=== PATIENT | male | born 2000 | race Caucasian/White ===

== ENCOUNTER 2022-12-18 12:04 | Outpatient (CLI) | payer OTHER ==
--- NOTE | 2022-12-18 14:04 | XRAY Report ---
PROCEDURE: Arthrogram Needle Placement INDICATIONS: RIGHT SHOULDER DISLOCATION CONTRAST: Not applicable FLUOROSCOPY TIME: Less than 1 second. TECHNIQUE: The indications, alternatives, benefits, risks, and complications of the procedure were explained to the patient. Written informed consent was obtained and placed in the chart. The shoulder was examin ed fluoroscopically and a site for needle placement chosen for entry into the glenohumeral joint from an anterior approach. The skin was prepped and draped in the usual fashion, and 1% lidocaine infilt rated from skin down to joint capsule. A spinal needle was inserted into the glenohumeral joint, and a small amount of iodinated contrast media injected to confirm intra-articular placement of the need le tip. This was followed by approximately 12 mL dilute solution of a gadolinium containing MR contr ast agent. The needle was removed and a dressing was applied. The patient was given postprocedural instructions and sent to the MR suite for MR imaging. FINDINGS: A single fluoroscopic spot image demonstrates intra-articular location of injected iodinated contrast . IMPRESSION: Successful fluoroscopically guided administration of dilute Gadolinium solution into the shoulder lanny clarke for MR arthrogram. Reviewed by: Francisco J Najera on 12/18/2022 2:02 PM PDT Approved by: Francisco J Najera on 12/18/2022 2:02 PM PDT Station ID: [id number]
--- NOTE | 2022-12-18 16:31 | MRI Report ---
PROCEDURE: ARTHROGRAM SHOULDER - RT INDICATIONS: RIGHT SHOULDER DISLOCATION TECHNIQUE: After the administration of 12 mL of dilute intra-articular Gadolinium contrast, oblique coronal T1 a nd T2 spin echo with fat saturation, oblique sagittal T1 spin echo with and without fat saturation, o blique sagittal T2 fast spin echo with fat saturation, axial T1 spin echo with fat saturation through the shoulder. COMPARISON: None. FINDINGS: Image quality: Excellent. Rotator cuff: Low-grade bursal surface partial-thickness tear involving distal supraspinatus at its i nsertion on humeral head is seen extending to musculotendinous junction. Distal infraspinatus tendino sis is seen. Low-grade partial-thickness tear involving superior fibers of distal subscapularis is al so noted. No full-thickness rotator cuff tendon rupture. No rotator cuff muscle atrophy on sagittal i mages. Bones and bursae: Chronic appearing Hill-Sachs deformity involving posterior lateral humeral head is seen. No corresponding Bankart fracture. No marrow edema is seen. No acromioclavicular joint degenera tion. The acromion demonstrates conventional anatomy, without an os acromiale. Capsule and soft tissues: Focal area of subtle signal abnormality and contour irregularity involving superior anterior labrum at 12 to 1:00 position is seen suggestive of subtle superior anterior labral tear. There is also signal abnormality and abnormal contrast extension involving anterior inferior l abrum at 5 to 6:00 position consistent with Bankart lesion. The long head of the biceps tendon demons trates normal location and morphology. The rotator interval appears normal, without fibrosis. The c oracohumeral ligament is of normal thickness. No intra-articular bodies. IMPRESSION: 1. Subacute or chronic appearing Hill-Sachs deformity involving humeral head. No Bankart fracture. No marrow edema. No gross loose bodies. 2. Low-grade bursal surface partial-thickness tear involving distal supraspinatus. Distal infraspinat us tendinosis. Low-grade partial-thickness tear involving superior fibers of distal subscapularis. No full-thickness rotator cuff tendon rupture. 3. Suggestion of very subtle superior anterior labral tear at 12 to 1:00 position. Suggestion of ante rior inferior labral tear at 5 to 6:00 position consistent with Bankart lesion. Reviewed by: Asael Franks MD on 12/18/2022 4:30 PM PDT Approved by: Asael Franks MD on 12/18/2022 4:30 PM PDT Station ID: [id number]
== END 2022-12-18 12:05 | disposition home or self-care (01) ==
LOC: DI 12:04
DX: M21.821 Other specified acquired deformities of right upper arm (principal); S43.004A Unspecified dislocation of right shoulder joint, initial encounter; M75.111 Incomplete rotator cuff tear or rupture of right shoulder, not specified as traumatic
CPT/HCPCS: 23350; 73222; 77002; A9585; Q9966

== ENCOUNTER 2023-01-16 11:23 | Emergency (ER) | payer OTHER ==
[2023-01-16 11:47] VITALS: BP 147/77
--- NOTE | 2023-01-16 12:07 | XRAY Report ---
PROCEDURE: Finger(s) RT INDICATIONS: Trauma TECHNIQUE: AP hand, 3 views of the second finger(s) acquired. COMPARISON: None. FINDINGS: Bones: No displaced fracture or dislocation. Soft tissues: No suspicious soft tissue calcifications. IMPRESSION: No acute radiographic abnormality. If there is high concern for occult injury, consider repeat radiog jazzmine or cross-sectional imaging. Reviewed by: Leonidas Chaidez MD on 01/16/2023 12:06 PM PDT Approved by: Leonidas Chaidez MD on 01/16/2023 12:06 PM PDT Station ID: [id number]
--- NOTE | 2023-01-16 13:14 | ED Physician Documentation ---
History of Present Illness - Stated complaint Stated Complaint: RT INDEX FINGER INJ - Chief complaint Chief Complaint: Trauma Ext - Additonal information Additional information: 20-year-old male presents emergency department for evaluation of acute right index finger injury sustained 1 week ago when an object weighing about 80 pounds fell on his finger. He is [employer]. He developed immediate bruising underneath the nailbed and over the last week it has failed to resolve. He does have some pain. No paresthesias at the distal tip. He is right-hand dominant. Review of Systems Constitutional: denies: Fever Ears: reports: Reviewed and negative Throat: reports: Reviewed and negative Cardiac: reports: Reviewed and negative Respiratory: denies: Dyspnea, Cough Musculoskeletal: reports: Extremity pain PD PAST MEDICAL HISTORY - Present Medications Home Medications: Ambulatory Orders Medication Instructions Recorded Confirmed No Known Home Medications 01/16/23 01/16/23 - Allergies Allergies/Adverse Reactions: Allergies Allergy/AdvReac Type Severity Reaction Status Date / Time No Known Drug Allergies Allergy Verified 01/16/23 11:46 PD ED PE EXPANDED - Extremities Extremities: Right finger(s) (Index finger with 100% subungual hematoma and bruising around the cuticle edges. The fat pad of the distal tip is soft. No erythema. Preserved flexion extension at DIP joint) Results - Vitals Vitals: Vital Signs - 24 hr 01/16/23 11:45 Temperature 36.3 C L Heart Rate 71 Respiratory 16 Rate Blood Pressure 147/77 H O2 Saturation 99 Oxygen O2 Source Room air - Rads (name of study) right hand xr Relevant Findings:: Final report received (No acute radiographic abnormality) Procedures - General procedure General procedure: Right index finger subungual hematoma was even easily trephinated x3 with electrocautery at bedside. Blood draining from the trephination sites. No anesthesia required PD Medical Decision Making - ED course Complexity details: d/w patient ED course: 22-year-old male presents to the emergency department for evaluation of injury to the right index finger sustained 5 days ago when an object weighing about 80 pounds crush the finger. An x-ray completed today at the bedside does not show any obvious fracture as interpreted by the radiologist. He has preserved flexion extension at DIP joint. He does have a 100% subungual hematoma of this digit and I was able to easily trephinate the nail at the bedside with blood flowing easily from the trephination sites. Simple bandage was placed. His tetanus is up-to-date. He is advised to follow closely with [facility]. Clinically there are no signs of infection in the finger or fat pad. We discussed the usual emergent return precautions for concerns of infection Departure - Departure Disposition: 01 Home, Self Care Clinical Impression: Crush injury Subungual hematoma of fingernail Qualifiers: Encounter type: initial encounter Qualified Code(s): S60.10XA - Contusion of unspecified finger with damage to nail, initial encounter Instructions: ED Hematoma Subungual Comments: Amrit you had a heavy object fall on your right index finger a week ago. You sustained some bruising under the nail this is called a subungual hematoma. Here at the bedside today we did do a procedure called trepanation in which we placed hot cautery against the nail to open it up and allow the bleeding to come out. This appears to be successful. Over the next several months you will find that this nail grows out and it will show signs of trauma. Continue to follow closely with [facility]. I encourage you to place a thin layer of antibiotic ointment over the nail and a simple bandage. Return to the ER if you have any concerns of infection developing
== END 2023-01-16 13:20 | disposition home or self-care (01) ==
LOC: ED 11:23
DX: S60.121A Contusion of right index finger with damage to nail, initial encounter (principal); S67.190A Crushing injury of right index finger, initial encounter; W20.8XXA Other cause of strike by thrown, projected or falling object, initial encounter
CPT/HCPCS: 11740; 99283